=== PATIENT | male | born 1940 | race Hispanic/Latino ===

== ENCOUNTER 2016-11-08 09:10 | Day surgery (SDC) | payer MEDICARE, BC ==
[2016-11-08] MEDS ORDERED: Lactated Ringer's 500 ML IV ONE (09:22)
[2016-11-08 09:39] VITALS: BMI 25.5
[2016-11-08] MEDS ORDERED: Propofol 10 mg/ml Inj (20 ML) ONE (10:28)
[2016-11-08 10:54] VITALS: BP 88/60; PULSE 61; RESP 16; TEMP 96.9; O2SAT 97
== END 2016-11-08 12:13 | disposition home or self-care (01) ==
LOC: EDBD → H.ENDO 09:10 → EDUNIT# 11:45 → H.ENDO 12:13
PROVIDERS: ATTEND Internal Medicine Gastroenterology
DX: Z12.11 Encounter for screening for malignant neoplasm of colon (principal); I25.10 Atherosclerotic heart disease of native coronary artery without angina pectoris; E11.9 Type 2 diabetes mellitus without complications; E78.5 Hyperlipidemia, unspecified; I10 Essential (primary) hypertension; N40.0 Benign prostatic hyperplasia without lower urinary tract symptoms
CPT/HCPCS: 45380; 88305; J2001; J2704; J7120

== ENCOUNTER 2016-11-22 08:32 | Day surgery (SDC) | payer MEDICARE, BC ==
[2016-11-22] MEDS ORDERED: Lactated Ringer's 500 ML IV ONE (08:57)
[2016-11-22] MEDS ORDERED: Propofol 10 mg/ml Inj (20 ML) ONE (09:41)
[2016-11-22 10:27] VITALS: PULSE 96; TEMP 96.8
[2016-11-22 10:53] VITALS: BP 110/77; RESP 20; O2SAT 97
== END 2016-11-22 11:00 | disposition home or self-care (01) ==
LOC: H.ENDO 08:32
PROVIDERS: ATTEND Internal Medicine Gastroenterology
DX: K30 Functional dyspepsia (principal); K44.9 Diaphragmatic hernia without obstruction or gangrene; K22.8 Other specified diseases of esophagus; K29.70 Gastritis, unspecified, without bleeding; E11.9 Type 2 diabetes mellitus without complications; E78.5 Hyperlipidemia, unspecified; K21.9 Gastro-esophageal reflux disease without esophagitis
CPT/HCPCS: 43239; 88305; J2001; J2704; J7120

== ENCOUNTER 2017-08-31 15:58 | Emergency (ER) | payer MEDICARE, BC ==
[2017-08-31 15:58] VITALS: BMI 25.5
[2017-08-31] MEDS ORDERED: Sodium Chloride 0.9% 500 ML IV STA (17:51)
--- NOTE | 2017-08-31 18:06 | ED PDOC ---
"HPI: General Adult Time Seen by Provider: 08/31/17 16:53 Chief Complaint (Nursing): ENT Problem Chief Complaint (Provider): Difficulty Swallowing History Per: Patient History/Exam Limitations: no limitations Onset/Duration Of Symptoms: Days (x2) Current Symptoms Are (Timing): Still Present Additional Complaint(s): 77 y/o male with a pmhx of CAD, HTN, dyslipidemia, BPH, and CABG, who presents to ER for evaluation of difficulty swallowing x2 days. Patient reports at 0900 yesterday he was unable to swallow orange juiced, but waited until 1200 and was able to each his lunch, and at 2100 last night he was able to eat his dinner. He states this morning he woke up unable to drink orange juice, but was able to drink water with his regular medications. He reports he attempted to eat a bagel and felt as if the food got stuck in his upper chest just below his throat and he had to spit it back up. Patient continues to be able to tolerate his saliva and secretions, but has been unable to eat anything. He reports mild lightheadedness. Denies chest or throat pain, or difficulty breathing. Patient also reports seeing GI specialist Dr. Elizabeth 10/2017 and had a normal colonoscopy. PMD: Dr. Jennings Past Medical History Reviewed: Historical Data, Nursing Documentation, Vital Signs Vital Signs: Last Vital Signs Temp 97.7 F 08/31/17 21:47 Pulse 104 H 08/31/17 23:23 Resp 17 08/31/17 23:23 BP 122/93 H 08/31/17 23:23 Pulse Ox 94 L 08/31/17 23:45 - Medical History PMH: Benign Prostatic Hyperplasia, CAD, COPD, HTN, Hypercholesterolemia Denies: Chronic Kidney Disease - Surgical History Surgical History: CABG (TRIPLE) - Family History Family History: States: Unknown Family Hx - Social History Current smoker - smoking cessation education provided: No Alcohol: None Drugs: Denies - Home Medications Home Medications: Ambulatory Orders Medication Instructions Recorded Tamsulosin [Flomax] 0.4 mg PO DAILY 02/18/14 Aspirin [Aspirin Chewable] 81 mg PO DAILY 11/22/16 MetFORMIN ER [Glucophage XR] 500 mg PO BID 11/22/16 Omeprazole 40 mg PO DAILY 11/22/16 Oxybutynin Chloride [Oxybutynin 15 mg PO DAILY 11/22/16 Chloride ER] Simvastatin 20 mg PO DAILY 11/22/16 - Allergies Allergies/Adverse Reactions: Allergies Allergy/AdvReac Type Severity Reaction Status Date / Time hay fever Allergy Intermediate ITCHING Uncoded 11/08/16 09:40 Review of Systems ROS Statement: Except As Marked, All Systems Reviewed And Found Negative ENT: Positive for: Other (difficulty swallowing). Negative for: Throat Pain Cardiovascular: Positive for: Light Headedness (mild). Negative for: Chest Pain Respiratory: Negative for: Shortness of Breath Physical Exam - Reviewed Nursing Documentation Reviewed: Yes Vital Signs Reviewed: Yes - Physical Exam Appears: Positive for: Well, No Acute Distress Head Exam: Positive for: ATRAUMATIC, NORMOCEPHALIC Skin: Positive for: Warm, Dry Eye Exam: Positive for: EOMI, PERRL ENT: Positive for: Other (dry mucous membranes, throat clear) Neck: Positive for: Painless ROM, Supple Cardiovascular/Chest: Positive for: Regular Rate, Rhythm. Negative for: Murmur Respiratory: Positive for: Rhonchi (diffuse, faint). Negative for: Accessory Muscle Use, Respiratory Distress Gastrointestinal/Abdominal: Positive for: Soft. Negative for: Tenderness Back: Positive for: Normal Inspection. Negative for: Decreased ROM Extremity: Positive for: Normal ROM. Negative for: Deformity Lymphatic: Negative for: Adenopathy Neurologic/Psych: Positive for: Alert. Negative for: Motor/Sensory Deficits - Laboratory Results Result Diagrams: 08/31/17 18:05 08/31/17 18:05 - ECG ECG Rhythm: Positive for: Sinus Rhythm (PACs), Sinus Tachycardia, Nonspecific Changes O2 Sat by Pulse Oximetry: 94 (RA) Pulse Ox Interpretation: Normal (low) Medical Decision Making Medical Decision Making: Initial Impression: Dysphagia. Differential diagnoses include, but are not limited to esophageal stricture, esophageal malignancy, severe cardiomegaly, and esophageal web. 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 EXAM: CT Chest Without Intravenous Contrast CLINICAL HISTORY: 77 years old, male; Possible esophageal obstruction. Three vessel coronary artery bypass surgery. TECHNIQUE: Axial computed tomography images of the chest without intravenous contrast. All CT scans at this facility use one or more dose reduction techniques, viz.: automated exposure control; ma/kV adjustment per patient size (including targeted exams where dose is matched to indication; i.e. head); or iterative reconstruction technique. COMPARISON: No relevant prior studies available. FINDINGS: Lungs: Hyperinflated lungs that are increased in AP diameter. Linear scar or atelectasis in both lower lobes and right upper lobe. Peribronchial thickening. No endobronchial mass. Pleural space: Small loculated left pleural effusion with pleural calcifications. Bilateral subpleural fat deposition. Nodular pleural thickening in the anterior aspect of the right hemithorax. Biapical pleural thickening/scarring. Thickened left fissure. Small nodular thickening in the right minor fissure (series 602 image 49 and series 3 image 72). No pneumothorax. Heart: The heart is normal in size. No pericardial effusion is seen. Mediastinum: Mediastinal clips. A moderate-sized paraesophageal hernia and herniation of peritoneal fat through the esophageal hiatus is seen. No obstruction. Thyroid: Small hypoattenuation in the inferior left thyroid lobe. Bones/joints: There are sternal wires. Right paracentral spur/calcification at T10. No acute fracture. No dislocation. Soft tissues: Unremarkable. Vasculature: There are atherosclerotic calcifications of the aorta, great vessels and coronary arteries. No thoracic aortic aneurysm. Punctate calcification in the anterior aspect of the IVC. Lymph nodes: Unremarkable. No enlarged lymph nodes. Kidneys: 11 mm soft tissue attenuation causing convex contour of the right mid kidney. 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 No obstruction. Small loculated left pleural effusion with pleural calcifications. It may be due to previous trauma or infection. Thickened fissures and nodular right pleural thickening. COPD. Atelectasis in both lungs. AGUSTIN GARZA | Preliminary Radiology Report EXPLOSIVE OPERATOR SUPERVISOR (QA) DISCREPANCY? If there is a discrepancy between the preliminary and final interpretation, please notify [facility] via [email or web address]. If you do not have access to our QA portal, call our QA team at [phone] CONFIDENTIALITY STATEMENT This report is intended only for the use of the referring physician, and only in accordance with law, If you received this in error, call [phone] Page 2 of 2 11 mm soft tissue attenuation causing convex contour of the right mid kidney. Possible hyperdense cyst or renal tumor. Dictated and Authenticated by: Donavon Wayne MD 08/31/2017 9:23 PM Eastern Time ([place]) 10P On reevaluation, pt tolerating fluids. PO challenge applesauce and crackers 1030p On reevaluation pt tolerating applesauce/crackers. Attempt sandwich. Comfortable on reexam. DW pt findings and plan of care. Follow up ENT and GI. 11p Stable for dc Scribe Attestation: Documented by Axel Zuluaga, acting as a scribe for Linda Johnson MD. Provider Scribe Attestation: All medical record entries made by the Scribe were at my direction and personally dictated by me. I have reviewed the chart and agree that the record accurately reflects my personal performance of the history, physical exam, medical decision making, and the department course for this patient. I have also personally directed, reviewed, and agree with the discharge instructions and disposition. Disposition - Clinical Impression Clinical Impression: Dysphagia - Disposition Referrals: Denys Tolliver MD [Staff Provider] - Nick Elizabeth MD, PhD [Staff Provider] - Utel Rohini Diane [Outside] Disposition: Routine/Home Disposition Time: 23:00 Condition: IMPROVED Additional Instructions: EAT ONLY SOFT EASY FOODS UNTIL YOU FOLLOW UP WITH SPECIALISTS. CHEW FOOD COMPLETELY BEFORE SWALLOWING FOLLOW UP WITH DR JENNINGS TOMORROW TO SEE HOW YOU ARE DOING AND YOU MAY NEED REFERRALS FROM HIM FOR ENT AND GASTROENTEROLOGY Instructions: Dysphagia Forms: [email or web address] (Italian)"
[2017-08-31 18:18] LABS: BASO # 0.1 K/uL (0.0-0.2); BASO % 1.2 % (0.0-2.0); EOS # 0.5 K/uL (0.0-0.7); EOS % 6.4 % (0.0-4.0); HEMOGLOBIN 16.4 g/dL (12.0-18.0); LYMPH # 1.7 K/uL (1.0-4.3); LYMPH % 22.4 % (20.0-40.0); MEAN CORPUSCULAR HGB CONC 34.1 g/dL (33.0-37.0); MEAN PLATELET VOLUME 7.9 fl (7.2-11.7); MONO # 0.9 K/uL (0.0-0.8); MONO % 11.8 % (0.0-10.0); NEUT # 4.5 K/uL (1.8-7.0); NEUT % 58.2 % (50.0-75.0); NRBC % 0.1 % (0.0-0.0); RBC 5.11 Mil/uL (4.40-5.90); RED CELL DISTRIBUTION WIDTH 14.2 % (11.5-14.5); WHITE BLOOD COUNT 7.8 K/uL (4.8-10.8)
[2017-08-31 18:26] LABS: ALB/GLOB RATIO 1.1 (1.0-2.1); ALBUMIN 4.2 g/dL (3.5-5.0); ALT/SGPT 29 U/L (21-72); AST/SGOT 25 U/L (17-59); BLOOD UREA NITROGEN 16 mg/dl (9-20); CALCIUM 9.3 mg/dL (8.4-10.2); GFR AFRICAN-AMERICAN > 60; GFR NON-AFRICAN AMERICAN > 60; LIPASE 83 U/L (23-300)
[2017-08-31 18:34] LABS: PARTIAL THROMBOPLASTIN TIME 41.3 Seconds (25.6-37.1); PROTHROMBIN TIME 11.1 Seconds (9.8-13.1)
[2017-08-31 18:38] LABS: B-TYPE NATRIURETIC PEPTIDE 106 pg/ml (0-900)
--- NOTE | 2017-08-31 19:23 | RAD ---
HISTORY: inability to swallow COMPARISON: Comparison is made with 06/02/2017 TECHNIQUE: Chest PA and lateral FINDINGS: LUNGS: No significant interval change in the lungs noted since the previous exam PLEURA: No significant pleural effusion identified. No pneumothorax apparent. CARDIOVASCULAR: The cardiac silhouette is prominent in size. Post sternotomy changes are again noted PE OSSEOUS STRUCTURES: No significant abnormalities. VISUALIZED UPPER ABDOMEN: Normal. OTHER FINDINGS: None. IMPRESSION: No active disease.
[2017-08-31] MEDS ORDERED: Iohexol 240 (50 ml) PO STA (20:01)
[2017-08-31] MEDS ORDERED: Iohexol 240 (50 ml) ONE (20:07)
[2017-08-31 21:48] VITALS: TEMP 97.7
[2017-08-31 23:23] VITALS: BP 122/93; PULSE 104; RESP 17
[2017-08-31 23:39] VITALS: O2SAT 94
--- NOTE | 2017-09-01 10:35 | CT ---
PROCEDURE: CT Chest without contrast HISTORY: Possible esophageal obstruction COMPARISON: August 31, 2017. Single-view chest TECHNIQUE: Contiguous axial images were obtained through the chest without intravenous contrast enhancement. Sagittal and coronal reconstructions were performed. Radiation dose (DLP): 399.12 mGy-cm. This CT exam was performed using one or more of the following dose reduction techniques: Automated exposure control, adjustment of the mA and/or kV according to patient size, and/or use of iterative reconstruction technique. FINDINGS: LUNGS: Hyperinflation, manifestations of COPD. No active pulmonary disease. Subsegmental atelectasis at the lung bases. MEDIASTINUM: Unremarkable thoracic aorta. No aneurysm. No radiographic findings to suggest acute or significant cardiovascular disease. Incidental Finding(s): Postoperative changes related to sternotomy. Main pulmonary artery unremarkable. No vascular congestion. No lymphadenopathy. PLEURA: Focal pleural calcifications unilateral, left. BONES: No fracture. No destructive lesion. UPPER ABDOMEN: Grossly unremarkable. OTHER FINDINGS: Small hiatal hernia. No evidence of obstructing lesion, mass or other pathologic process. IMPRESSION: No significant or acute findings to account for/ related to the clinical presentation. Additional benign and/or incidental findings described above. Concordant results (preliminary interpretation) provided by [facility]. Procedure Completed: 20:14 Preliminary ([facility]) Report: Dictated and Authenticated: 21:23 Final Interpretation: 10:33 September 01, 2017.
--- NOTE | 2017-09-01 22:45 | CARD ---
APPROVED REPORT EKG Measurement Heart [id number] <Conclusion> Atrial fibrillation with rapid ventricular response Incomplete right bundle branch block Nonspecific ST abnormality Abnormal ECG
== END 2017-08-31 23:28 | disposition home or self-care (01) ==
LOC: H.ER 15:58
DX: R13.10 Dysphagia, unspecified (principal); E78.00 Pure hypercholesterolemia, unspecified; I10 Essential (primary) hypertension; Z79.84 Long term (current) use of oral hypoglycemic drugs; Z95.1 Presence of aortocoronary bypass graft; I25.10 Atherosclerotic heart disease of native coronary artery without angina pectoris
CPT/HCPCS: 71046; 71250; 80053; 82948; 83690; 83735; 83880; 84100; 84484; 85025; 85610; 85730; 86850; 86900; 93005; 99284; J7030; Q9966